=== PATIENT | female | born 1995 | race Caucasian/White ===

== ENCOUNTER → 2016-10-01 | Outpatient (CLI) | payer BC, OTHER ==
[~2016-10-01] MED LIST: ADAP0.05 TOP; BCPILLS PO; MINO100C22 PO; OMEP20CA9 PO
== END | disposition home or self-care (01) ==
LOC: C.RDSM 13:31
PROVIDERS: ATTEND Family Medicine Sports Medicine
DX: M25.561 Pain in right knee (principal)

== ENCOUNTER → 2016-10-19 | Outpatient (CLI) | payer BC, OTHER ==
--- NOTE | 2016-10-19 15:41 | DIAGNOSTIC IMAGING REPORT ---
MRI THE RIGHT KNEE NO CONTRAST CLINICAL HISTORY: Right knee pain COMPARISON STUDY: Conventional radiographic study dated 10/01/2016 FINDINGS: Imaging was performed in sagittal, coronal, and axial planes. The patellar retinacular structures appear intact. There is no evidence of pathologic joint effusion. There is no evidence of occult fracture or bone bruise. The medial and lateral collateral ligaments appear intact. No meniscal tears are visualized. The anterior and posterior cruciate ligaments appear intact. There is no evidence of pathologic fat pad edema. IMPRESSION: Normal study Electronically signed by: Adithya Henao M.D. 10/19/2016 3:38 PM Dictated Date/Time: 10/19/2016 3:36 PM
== END | disposition home or self-care (01) ==
LOC: C.MRI 14:42
PROVIDERS: ATTEND Family Medicine Sports Medicine
DX: E88.89 Other specified metabolic disorders (principal)